=== PATIENT | female | born 1995 | race American Indian/Alaskan Native ===

== ENCOUNTER 2019-02-26 01:53 | Inpatient (IN) | payer MEDICAID ==
[2019-02-26] MEDS ORDERED: LACTATED RINGERS 1,000 ML IV SCH ×2 (03:00→04:00)
[2019-02-26] MEDS ORDERED: LACTATED RINGERS 1,500 ML IV NR (03:00)
[2019-02-26] MEDS ORDERED: PEPCID IV ONE ×2 (03:15→03:21)
[2019-02-26] MEDS ORDERED: REGLAN IV ONE (03:15)
[2019-02-26] MEDS ORDERED: BICITRA PO ONE (03:15)
[2019-02-26 03:17] LABS: Bacteria,Urine 1+ /HPF (Negative); Bilirubin,Urine NEG (Negative); Blood,Urine SM (Negative); Color,Urine Yellow (Yellow); Protein,Urine <15 mg/dL mg/dL (Negative)
[2019-02-26] MEDS ORDERED: REGLAN ONE (03:21)
[2019-02-26] MEDS ORDERED: PITOCin/NS 20 UNIT/1000ML DRIP 20,000 MILLIUNITS/1,000 ML BAG IV ONE ×2 (03:21→04:56)
[2019-02-26] MEDS ORDERED: BICITRA ONE (03:21)
[2019-02-26 03:52] LABS: Basophils % (Auto) 0.2 % (0.0-1.8); Eosinophils # (Auto) 0.1 K/mm3 (0.0-0.4); Eosinophils % (Auto) 0.6 % (0.0-4.3); Hematocrit 30.3 % (30.3-42.9); Hemoglobin 10.3 gm/dl (10.1-14.3); Lymphocytes # (Auto) 1.8 K/mm3 (1.2-5.4); Lymphocytes % (Auto) 13.1 % (13.4-35.0); Mean Corpuscular HGB Conc 34 % (30-34); Mean Corpuscular Volume 96 fl (79-97); Monocytes # (Auto) 1.5 K/mm3 (0.0-0.8); Platelet Count 230 K/mm3 (140-440); Red Blood Count 3.14 M/mm3 (3.65-5.03); Red Cell Distribution Width 13.7 % (13.2-15.2)
[2019-02-26] MEDS ORDERED: STADOL ONE (03:52)
[2019-02-26] MEDS ORDERED: ANCEF/STERILE WATER 2 GM/20 ML 2 GM/20 ML SYRINGE IV NR (04:00)
[2019-02-26 04:06] LABS: Amphetamine Screen,Urine PRESUMPTIVE NEGATIVE; Benzodiazepines Screen,Urine PRESUMPTIVE NEGATIVE; Cocaine Screen,Urine PRESUMPTIVE NEGATIVE; Methadone Screen,Urine PRESUMPTIVE NEGATIVE; Opiate Screen,Urine PRESUMPTIVE NEGATIVE
[2019-02-26] MEDS ORDERED: DIPRIVAN 10 MG/ML IV ONE (04:09)
[2019-02-26 04:19] LABS: Cannabinoid Screen,Urine PRESUMPTIVE POSITIVE
[2019-02-26 04:24] LABS: Alanine Aminotransferase 6 units/L (7-56); Albumin 3.5 g/dL (3.9-5); BUN/Creatinine Ratio 8; Blood Urea Nitrogen 4 mg/dL (7-17); Calcium 8.3 mg/dL (8.4-10.2); Hemolysis Index 5
[2019-02-26] MEDS ORDERED: CYTOTEC ONE (04:29)
[2019-02-26] MEDS ORDERED: METHERGINE IM ONE ×2 (04:30→04:42)
[2019-02-26] MEDS ORDERED: CYTOTEC PR ONE (04:42)
[2019-02-26] MEDS ORDERED: PHENERGAN PO PRN (04:43)
[2019-02-26] MEDS ORDERED: MILK OF MAGNESIA PO PRN (04:43)
[2019-02-26] MEDS ORDERED: LANSINOH TP PRN (04:43)
[2019-02-26] MEDS ORDERED: TUCKS PAD TP PRN (04:43)
[2019-02-26] MEDS ORDERED: DULCOLAX PR PRN (04:43)
[2019-02-26] MEDS ORDERED: BENADRYL PO PRN (04:43)
[2019-02-26] MEDS ORDERED: TYLENOL PO PRN (04:43)
[2019-02-26] MEDS ORDERED: ZOFRAN IV PRN (04:43)
--- NOTE | 2019-02-26 04:52 | History and Physical Report ---
History of Present Illness Date of admission: 02/26/19 04:33 Chief complaint: spontaneous rupture of membranes at midnight History of present illness: 23yo at 37wks presents to L&D complaining of spontaneous rupture of membranes at midnight. She reports good movement, no previous vaginal bleeding. She has had essentially no care with one doctor's visit in [place], one ultrasound in [place] in August, no labs. She had a delivery in 2014 due to distress and a vaginal in 2017. She reports both deliveries were full term. She reports no knowledge of problems this but has not had an anatomy scan and is unaware of the gender. She states she smoked pre- and denies any alcohol or illicit drug use. Past History Past Surgical History: no surgical history Family/Genetic History: none Social history: smoking - Obstetrical History : 4 Number of Living Children: 2 Medications and Allergies Allergies Allergy/AdvReac Type Severity Reaction Status Date / Time No Known Allergies Allergy Verified 02/26/19 02:41 Active Meds: Active Medications Acetaminophen (Tylenol) 650 mg PO Q4H PRN PRN Reason: Pain MILD(1-3)/Fever >100.5/[place] Bisacodyl (Dulcolax) 10 mg LA BID PRN PRN Reason: Constipation Diphenhydramine HCl (Benadryl) 25 mg PO Q6H PRN PRN Reason: Itching Lactated Ringer's (Lactated Ringers) 1,500 mls @ 2,250 mls/hr IV PREOP NR Stop: 02/27/19 02:59 Last Admin: 02/26/19 03:13 Dose: 2,250 mls/hr Documented by: Lactated Ringer's (Lactated Ringers) 1,000 mls @ 125 mls/hr IV DIRECT [place] Cefazolin Sodium (Ancef/Sterile Water 2 Gm/20 Ml) 2 gm in 20 mls @ 80 mls/hr IV PREOP NR; Protocol Stop: 02/26/19 23:45 Ibuprofen (Ibuprofen) 600 mg PO Q6H [place] Magnesium Hydroxide (Milk Of Magnesia) 30 ml PO HS PRN PRN Reason: Constipation Methylergonovine Maleate (Methergine) 0.2 mg IM ONCE ONE Stop: 02/26/19 04:43 Misoprostol (Cytotec) 800 mcg LA ONCE ONE Stop: 02/26/19 04:43 Multi-Ingredient Ointment (Lansinoh) 1 applic TP PRN PRN PRN Reason: Sore Nipples Ondansetron HCl (Zofran) 4 mg IV Q8H PRN PRN Reason: Nausea And Vomiting Promethazine HCl (Phenergan) 25 mg PO Q6H PRN PRN Reason: Nausea And Vomiting Sodium Chloride (Sodium Chloride Flush Syringe 10 Ml) 10 ml IV PRN NR Witch Jennifer/Glycerin (Tucks Pad) 1 each TP PRN PRN PRN Reason: Hemorrhoid/cleansing/soothing - Vital Signs Vital signs: Vital Signs Temp Pulse Resp BP Pulse Ox 98.0 F 81 17 99/55 98 02/26/19 02:30 02/26/19 02:30 02/26/19 02:30 02/26/19 02:30 02/26/19 02:30 Temp Pulse Resp BP Pulse Ox 98.0 F 88 17 99/55 100 02/26/19 03:11 02/26/19 03:53 02/26/19 02:30 02/26/19 02:32 02/26/19 03:53 - Physical Exam Genitourinary (Female): Positive: normal external genitalia Vulva: both: normal Vagina: Positive: other (labia and james ~ 100 ml bright red blood) - Obstetrical FHR: category 2 FHR comments: FHR 110s recurrent early decelerations to 80s Minimal variability Cervical Dilatation: 7 Cervical Effacement Percentage: 80 station: -1 Uterine Contraction Pattern: Regular Results Result Diagrams: 02/26/19 03:23 02/26/19 03:23 Abnormal lab results 02/26/19 02/26/19 02/26/19 Range/Units 02:30 03:23 03:23 WBC 14.0 H (4.5-11.0) K/mm3 RBC 3.14 L (3.65-5.03) M/mm3 MCH 33 H (28-32) pg Lymph % (Auto) 13.1 L (13.4-35.0) % Eagle % (Auto) 11.0 H (0.0-7.3) % Eagle # 1.5 H (0.0-0.8) K/mm3 Seg Neutrophils % 75.1 H (40.0-70.0) % Seg Neutrophils # 10.5 H (1.8-7.7) K/mm3 POC ABG pH (7.35-7.45) POC ABG pCO2 (35-45) Potassium 3.3 L (3.6-5.0) mmol/L Carbon Dioxide 21 L (22-30) mmol/L BUN 4 L (7-17) mg/dL Creatinine 0.5 L (0.7-1.2) mg/dL Calcium 8.3 L (8.4-10.2) mg/dL ALT 6 L (7-56) units/L Albumin 3.5 L (3.9-5) g/dL Urine WBC (Auto) 53.0 H (0.0-6.0) /HPF 02/26/19 02/26/19 Range/Units 04:30 04:34 WBC (4.5-11.0) K/mm3 RBC (3.65-5.03) M/mm3 MCH (28-32) pg Lymph % (Auto) (13.4-35.0) % Eagle % (Auto) (0.0-7.3) % Eagle # (0.0-0.8) K/mm3 Seg Neutrophils % (40.0-70.0) % Seg Neutrophils # (1.8-7.7) K/mm3 POC ABG pH 7.272 L 7.309 L (7.35-7.45) POC ABG pCO2 49.5 H (35-45) Potassium (3.6-5.0) mmol/L Carbon Dioxide (22-30) mmol/L BUN (7-17) mg/dL Creatinine (0.7-1.2) mg/dL Calcium (8.4-10.2) mg/dL ALT (7-56) units/L Albumin (3.9-5) g/dL Urine WBC (Auto) (0.0-6.0) /HPF All other labs normal. Assessment and Plan - Patient Problems (1) Previous section Current Visit: Yes Status: Acute Plan to address problem: 1. Risk, benefits and alternatives to trial of labor versus section were discussed with patient. Due to vaginal bleeding and category II heart tracing recommendation for section was made. Informed consent for repeat CD was signed. Patient was taken to delivery room for STAT CD and subsequently precipitously delivered while being moved to the OR table (see delivery note). (2) distress Current Visit: Yes Status: Acute (3) No care in current Current Visit: Yes Status: Acute Plan to address problem: 1. No care labs, UDS ordered. 2. Ancef 2g IV ordered. 3. SCDs/Call Catheter. 4. Cephalic presentation confirmed. 5. Due to active labor, rupture of membranes at 37 weeks decision was to proceed to delivery.
[2019-02-26] MEDS ORDERED: SODIUM CHLORIDE FLUSH SYRINGE 10 ML IV NR (05:00)
--- NOTE | 2019-02-26 05:04 | Procedure Note ---
OB Delivery Note - Delivery Estimated blood loss: 500cc - Vaginal Intrapartum events: no care Delivery induction: none Delivery monitor: external FHT Route of delivery: Delivery placenta: spontaneous Delivery cord: nuchal cord (x 2) Delivery laceration: none Anesthesia: none Delivery comments: Due to Category II heart tracings, minimal variability and early decelerations to 80's STAT csection called. After transport to OR, mother found to be complete and +3 while transitioning to OR bed. With maternal pushing spontaneous vaginal delivery achieved. Infant noted to have Nuchal cord x 2 reduced easily. Cord clamped x 2 and rigorous crying transported to [facility] for NICU evaluation. No cervical, vaginal or perineal lacerations noted. Passage of blood and clots noted after delivery (~400ml). Methergine 0.2mg IM and misoprostol 800mcg placed per rectum administered for hemorrhage prophylaxis. Bleeding well controlled. - A at 1 minute: 8 at 5 minutes: 9 Infant Gender: Male (Weight 5lb 3oz, spontaneous cry, bulb suctioned, cord reduced, cut placed on warmer)
[2019-02-26] MEDS ORDERED: STADOL IV ONE (05:34)
[2019-02-26] MEDS: IBUPROFEN PO SCH ×4 (06:48→20:24)
[2019-02-26 12:02] LABS: Hepatitis C Virus Antibody Non-Reactive (NonReactive)
[2019-02-27] MEDS: IBUPROFEN PO SCH ×3 (01:54→21:39)
[2019-02-27 06:03] LABS: Basophils # (Auto) 0.1 K/mm3 (0.0-0.1); Basophils % (Auto) 0.4 % (0.0-1.8); Eosinophils # (Auto) 0.2 K/mm3 (0.0-0.4); Eosinophils % (Auto) 1.5 % (0.0-4.3); Hematocrit 23.9 % (30.3-42.9); Hemoglobin 8.1 gm/dl (10.1-14.3); Lymphocytes # (Auto) 3.1 K/mm3 (1.2-5.4); Mean Corpuscular HGB Conc 34 % (30-34); Mean Corpuscular Volume 96 fl (79-97); Monocytes # (Auto) 1.4 K/mm3 (0.0-0.8); Monocytes % (Auto) 10.4 % (0.0-7.3); Platelet Count 210 K/mm3 (140-440); Red Blood Count 2.49 M/mm3 (3.65-5.03); Red Cell Distribution Width 13.8 % (13.2-15.2)
--- NOTE | 2019-02-27 10:47 | Progress Note ---
Assessment and Plan - Patient Problems (1) Previous section Current Visit: Yes Status: Acute (2) distress Current Visit: Yes Status: Acute (3) No care in current Current Visit: Yes Status: Acute Plan to address problem: 1. Mother recovering well. 2. Leukocytosis-Resolving. Present on admission so likely due to time from rupture of membranes to transport to hospital but no signs of infection, abdominal pain, fever present. 3. Contraception - patient desires Depo-Provera. Ordered. 4. Anemia - present on admission and due to acute blood loss. Discussed starting iron supplementation at discharge. 5. Due to no care in an early term infant, small for gestational plan to keep mother and baby overnight to aid in care, feeding. 6. Plan discharge within 24hrs. Subjective - Subjective Interval history: 23yo at 37wks PPD#1 with no complaints. She denies heavy bleeding and pain is well controlled. She states she has everything she has for her new infant and is stable at home. She plans to start working soon. She desires to go home but after speaking with the nursing staff monitoring mother and baby overnight to monitor feeding is necessary before discharge. Patient reports: appetite normal, voiding normally, pain well controlled : doing well Objective - Vital Signs Latest vital signs: Vital Signs Temp Pulse Resp BP Pulse Ox 02/27/19 07:29 98.2 F 61 20 107/74 99 02/26/19 17:31 97.5 F L 74 19 103/67 100 02/26/19 13:15 98.0 F 74 18 112/63 99 02/26/19 12:16 20 Intake and Output 02/26/19 02/27/19 02/27/19 23:59 07:59 15:59 Intake Total 120 Balance 120 Intake: Oral 120 Other: Total, Intake Amount 120 # Voids Void 1 - Exam Abdomen: Present: normal appearance Uterus: Present: normal, fundal height below umbilicus - Labs Labs: Abnormal lab results 02/27/19 Range/Units 05:36 WBC 13.2 H (4.5-11.0) K/mm3 RBC 2.49 L (3.65-5.03) M/mm3 Hgb 8.1 L (10.1-14.3) gm/dl Hct 23.9 L D (30.3-42.9) % MCH 33 H (28-32) pg Cannon % (Auto) 10.4 H (0.0-7.3) % Cannon # 1.4 H (0.0-0.8) K/mm3 Seg Neutrophils # 8.6 H (1.8-7.7) K/mm3
--- NOTE | 2019-02-27 17:31 | Discharge Summary ---
Providers - Providers Date of Admission: 02/26/19 04:33 Attending physician: GIOVANNY ABEBE 02/26/19 07:40 Consult to Case Management [CONS] Routine Services Needed at Discharge: Driver Salesman Notified:: [phone] Phone number called:: [phone] Additional Physician Instructions: mom positive for THC Primary care physician: GIOVANNY ABEBE Hospitalization Reason for admission: active labor, rupture of membranes Delivery: Procedure details: Due to Category II heart tracings, minimal variability and early decelerations to 80's STAT csection called. After transport to OR, mother found to be complete and +3 while transitioning to OR bed. With maternal pushing spontaneous vaginal delivery achieved. noted to have Nuchal cord x 2 reduced easily. Cord clamped x 2 and rigorous crying infant transported to [facility] for NICU evaluation. No cervical, vaginal or perineal lacerations noted. Passage of blood and clots noted after delivery (~400ml). Methergine 0.2mg IM and misoprostol 800mcg placed per rectum administered for hemorrhage prophylaxis. Bleeding well controlled. Episiotomy: none Laceration: none complications: none Discharge diagnosis: IUP at term delivered (Patient states she was 37 weeks. (see pediatrian note)) baby: male Condition at discharge: Stable Disposition: DC-01 TO HOME OR SELFCARE - Discharge Diagnoses (1) Previous section Status: Acute (2) distress Status: Acute (3) No care in current Status: Acute Comment: Social stressors identified while in hospital. Patient is living in hotel and due to financial issues and early delivery had no car seat or bassinet. She is working with [facility] to obtain the resources she needs before discharge. (4) Anemia affecting Status: Acute (5) Anemia associated with acute blood loss Status: Acute Comment: Asymptomatic. Plan to continue iron supplementation at discharge. Plan - Discharge Medications Prescriptions: Ferrous Sulfate [Feosol 325 MG tab] 325 mg PO BID 30 Days #60 tablet - Provider Discharge Summary Activity: routine, no sex for 6 weeks, no heavy lifting 4 weeks, no strenuous exercise Additional instructions: [] Smoking cessation referral if applicable(refer to patient education folder for contact #) [] Refer to [facility]'s [facility] Booklet Call your doctor immediately for: * Fever > 100.5 * Heavy vaginal bleeding ( >1 pad per hour) * Severe persistent headache * Shortness of breath * Reddened, hot, painful area to leg or breast * Drainage or odor from incision. * Keep incision clean and dry at all times and follow doctor's instructions regarding bathing/showering - Follow up plan Follow up: GIOVANNY ABEBE MD [Primary Care Provider] - 7 Days Forms: C Discharge Summary
[2019-02-27] MEDS ORDERED: DEPO-PROVERA (CONTRACEPTION) IM ONE ×2 (18:00→22:10)
[2019-02-28] MEDS: IBUPROFEN PO SCH ×3 (05:46→12:25)
[2019-02-28 14:45] VITALS: BP 114/69
== END 2019-02-28 14:30 | disposition home or self-care (01) | DRG 775 ==
LOC: TRG 01:53 → LD 04:33 → OB 05:26
PROVIDERS: ADMIT Obstetrics & Gynecology; ATTEND Obstetrics & Gynecology
PROC: 10E0XZZ Delivery of Products of Conception, External Approach (ICD-10-PCS; principal; 2019-02-26)
PROC: 4A033R1 Measurement of Arterial Saturation, Peripheral, Percutaneous Approach (ICD-10-PCS; 2019-02-26)
DX: O77.9 Labor and delivery complicated by fetal stress, unspecified (principal); O69.1XX0 Labor and delivery complicated by cord around neck, with compression, not applicable or unspecified; O99.12 Other diseases of the blood and blood-forming organs and certain disorders involving the immune mechanism complicating childbirth; D72.829 Elevated white blood cell count, unspecified; O99.02 Anemia complicating childbirth; O75.9 Complication of labor and delivery, unspecified; D62 Acute posthemorrhagic anemia; O99.334 Smoking (tobacco) complicating childbirth; F17.200 Nicotine dependence, unspecified, uncomplicated; Z37.0 Single live birth; Z3A.37 37 weeks gestation of pregnancy
CPT/HCPCS: 36415; 80053; 80307; 81001; 82803; 85025; 86592; 86706; 86762; 86803; 86850; 86900; 86901; 87086; 87806; G0378; J0595; J1050; J2210; J2590; J2704; J2765; J7120